=== PATIENT | male | born 1975 | race Caucasian/White ===

== ENCOUNTER 2020-06-24 21:22 | Emergency (ER) | payer OTHER ==
[~2020-06-24] VITALS: Ht 188 cm; Wt 154.0 kg
[2020-06-24] MEDS ORDERED: ACETAMINOPHEN 325MG TABLET PO ONE (22:00)
[2020-06-24 23:42] VITALS: BP 139/77
== END 2020-06-24 23:43 | disposition home or self-care (01) ==
LOC: ER 21:22
DX: M79.632 Pain in left forearm (principal)
CPT/HCPCS: 71045; 73080; 73090; 73552; 99284